=== PATIENT | female | born 1965 | race Caucasian/White ===

== ENCOUNTER 2025-01-11 06:33 | Day surgery (SDC) | payer OTHER ==
[2025-01-11] MEDS ORDERED: Propofol 200 MG/20 ML SDV ONE ×2 (07:02→07:49)
[2025-01-11] MEDS ORDERED: fentaNYL 50 MCG/ML SDV ONE (07:02)
[2025-01-11] MEDS ORDERED: Midazolam 1 MG/ML 2 ML SDV ONE (07:02)
[2025-01-11] MEDS: Lactated Ringers 1,000 ML IV SCH (07:28)
== END 2025-01-11 09:35 | disposition home or self-care (01) ==
LOC: JP.SDS 06:33
PROVIDERS: ATTEND Family Medicine
DX: Z12.11 Encounter for screening for malignant neoplasm of colon (principal)
CPT/HCPCS: 45378; J1642; J2250; J2704; J3010; J7120